=== PATIENT | female | born 1990 | race Hispanic/Latino ===

== ENCOUNTER 2017-12-30 17:22 | Observation (INO) | payer MEDICAID ==
[~2017-12-30] VITALS: Ht 170.2 cm; Wt 72.6 kg
[2018-01-07] MEDS ORDERED: LACTATED RINGERS 1000ML 1,000 ML IV PRN (09:00)
== END 2018-01-07 10:35 | disposition home or self-care (01) ==
LOC: LDH 01-07 07:59
PROVIDERS: ADMIT Obstetrics & Gynecology; ATTEND Obstetrics & Gynecology
DX: O26.893 Other specified pregnancy related conditions, third trimester (principal); R10.2 Pelvic and perineal pain; M54.9 Dorsalgia, unspecified; Z3A.38 38 weeks gestation of pregnancy
CPT/HCPCS: 36415; 85027; 86592; 86850; 86900; 86901; 87340 ×2; 96360; G0378 ×4; J7120

== ENCOUNTER 2018-01-08 10:30 | Inpatient (IN) | payer MEDICAID ==
[2018-01-07 11:24] LABS: HEMATOCRIT 35.5 % (36-48); MEAN CORPUSCULAR HEMOGLOBIN 31.6 pg (27.0-33.0); MEAN CORPUSCULAR HGB CONC 34.1 g/dL (32.0-36.0); MEAN CORPUSCULAR VOLUME 92.6 fL (79-99); NUCLEATED RED BLOOD CELLS 0.1 % (0.0-0.19); PLATELET COUNT (AUTO) 172 K/uL (130-400); RED BLOOD CELL COUNT(AUTO) 3.83 MIL/uL (4.00-5.50); RED CELL DISTRIBUTION WIDTH 16.9 % (11.0-15.5); WHITE BLOOD COUNT (AUTO) 10.6 K/uL (4.8-10.8)
[2018-01-08 07:30] LABS: HEPATITIS Bs ANTIGEN SCREEN P Negative (Negative)
[2018-01-09] MEDS ORDERED: LACTATED RINGERS 1000ML 1,000 ML IV SCH (08:15)
[2018-01-09] MEDS ORDERED: CALDOLOR 800MG+NS 250ML 250 ML IV PRN (08:15)
[2018-01-09] MEDS ORDERED: CEFAZOLIN SODIUM 1 GM VIAL IVP PRN (08:15)
[2018-01-09] MEDS ORDERED: DURAMORPH PF1 MG/ML 10ML AMP IV ONE (09:08)
[2018-01-09] MEDS ORDERED: MIDAZOLAM HCL 1 MG/ML 2ML VIAL ONE (09:14)
[2018-01-09] MEDS ORDERED: CEFAZOLIN SODIUM 1 GM VIAL IVP ONE (09:15)
[2018-01-09] MEDS ORDERED: OXYTOCIN 10 USP UNITS/ML ONE ×2 (09:35→10:44)
[2018-01-09] MEDS ORDERED: EPHEDRINE-NS PF 50MG/5ML SYRINGE IV ONE (09:35)
[2018-01-09] MEDS ORDERED: DEXAMETHASONE SOD PHOSPHATE 10MG/ML 1ML VIAL ONE (09:35)
[2018-01-09] MEDS ORDERED: ONDANSETRON HCL 4 MG/2 ML VIAL ONE ×2 (09:35→11:55)
[2018-01-09] MEDS ORDERED: OXYTOCIN-LR 20 UNITS/1000 ML 1,000 ML IV PRN (09:59)
[2018-01-09] MEDS ORDERED: IBUPROFEN 800 MG TAB PO SCH (10:00)
[2018-01-09] MEDS ORDERED: LANOLIN 30GM OINTMENT TP PRN (10:00)
[2018-01-09] MEDS ORDERED: HYDROCODONE/ACETAMINOPHEN 5/325 MG TAB PO PRN ×2 (10:00)
[2018-01-09] MEDS ORDERED: SODIUM CHLORIDE 0.9% 10 ML VIAL IVP PRN (10:00)
[2018-01-09] MEDS ORDERED: ACETAMINOPHEN-CODEINE 300/30MG TAB PO PRN (10:00)
[2018-01-09] MEDS ORDERED: DIPH,PERTUSS(ACELL),TET VAC/PF 0.5 ML VIAL IM SCH (10:00)
[2018-01-09] MEDS ORDERED: PROMETHAZINE HCL 25 MG/ML 1ML AMPULE IM PRN (10:00)
[2018-01-09] MEDS ORDERED: MEASLES/MUMPS/RUBELLA VACCINE, LIVE 0.5 ML/VIAL SQ SCH (10:00)
[2018-01-09] MEDS ORDERED: BISACODYL 10 MG SUPP.RECT RC PRN (10:00)
[2018-01-09] MEDS ORDERED: DIPHENHYDRAMINE HCL 25 MG CAPSULE PO PRN (10:00)
[2018-01-09] MEDS ORDERED: MEPERIDINE-PF 75 MG/ML SYG IM PRN (10:00)
[2018-01-09] MEDS ORDERED: METHYLERGONOVINE MALEATE 0.2 MG/1 ML ML ONE (10:37)
[2018-01-09] MEDS ORDERED: METHYLERGONOVINE MALEATE 0.2 MG/1 ML ML IM SCH (10:45)
[2018-01-09] MEDS ORDERED: MEPERIDINE-PF 50 MG/ML SYG ONE (11:48)
[2018-01-09 12:00] VITALS: BP 122/76
[2018-01-09 15:30] VITALS: BP 123/75
[2018-01-09] MEDS: CALDOLOR 800MG+NS 250ML 250 ML IV SCH (17:44)
[2018-01-09 19:45] VITALS: BP 99/61
[2018-01-09] MEDS: DOCUSATE SODIUM 100 MG CAP PO SCH (20:15)
[2018-01-09] MEDS: DEXTROSE 5 %-0.45 % NACL 1,000 ML IV PRN (21:03)
[2018-01-09] MEDS: SIMETHICONE 80 MG TAB.CHEW PO PRN (23:23)
[2018-01-09 23:24] VITALS: BP 119/78
[2018-01-10] MEDS: CALDOLOR 800MG+NS 250ML 250 ML IV SCH (02:01)
[2018-01-10 03:51] VITALS: BP 105/68
[2018-01-10] MEDS: DEXTROSE 5 %-0.45 % NACL 1,000 ML IV PRN (04:20)
[2018-01-10 07:41] VITALS: BP 104/67
[2018-01-10 08:56] LABS: HEMATOCRIT 31.9 % (36-48); MEAN CORPUSCULAR HEMOGLOBIN 31.6 pg (27.0-33.0); MEAN CORPUSCULAR HGB CONC 34.2 g/dL (32.0-36.0); MEAN CORPUSCULAR VOLUME 92.4 fL (79-99); PLATELET COUNT (AUTO) 160 K/uL (130-400); RED BLOOD CELL COUNT(AUTO) 3.45 MIL/uL (4.00-5.50); RED CELL DISTRIBUTION WIDTH 16.7 % (11.0-15.5); WHITE BLOOD COUNT (AUTO) 12.9 K/uL (4.8-10.8)
[2018-01-10] MEDS: DOCUSATE SODIUM 100 MG CAP PO SCH ×2 (09:05→21:27)
[2018-01-10] MEDS: SIMETHICONE 80 MG TAB.CHEW PO PRN ×3 (09:05→21:27)
[2018-01-10] MEDS: LIDOCAINE 5% TOPICAL PATCH TP SCH (09:06)
[2018-01-10] MEDS: IBUPROFEN 800 MG TAB PO SCH ×2 (09:09→17:22)
[2018-01-10 11:43] VITALS: BP 97/56
[2018-01-10 15:56] VITALS: BP 104/71
[2018-01-10 19:33] VITALS: BP 103/68
[2018-01-10 23:57] VITALS: BP 105/61
[2018-01-11] MEDS: IBUPROFEN 800 MG TAB PO SCH ×2 (02:12→08:30)
[2018-01-11 04:07] VITALS: BP 108/66
[2018-01-11 08:00] VITALS: BP 104/64
[2018-01-11] MEDS: LIDOCAINE 5% TOPICAL PATCH TP SCH (08:29)
[2018-01-11] MEDS: DOCUSATE SODIUM 100 MG CAP PO SCH (08:29)
[2018-01-11] MEDS: SIMETHICONE 80 MG TAB.CHEW PO PRN (08:29)
[2018-01-11] MEDS ORDERED: DOCU-116 PO ×2 (11:51)
[2018-01-11 11:55] VITALS: BP 112/70
[2018-01-11] MEDS ORDERED: MO8B PO ×2 (12:10)
[2018-01-11] MEDS ORDERED: ACET1TAB12 PO ×2 (12:12)
== END 2018-01-11 13:00 | disposition home or self-care (01) | DRG 540 ==
LOC: LDH 01-09 07:52 → WSH 01-09 11:43
PROVIDERS: ADMIT Obstetrics & Gynecology; ATTEND Obstetrics & Gynecology
PROC: 0UL70ZZ Occlusion of Bilateral Fallopian Tubes, Open Approach (ICD-10-PCS; 2018-01-09)
PROC: 3E0234Z Introduction of Serum, Toxoid and Vaccine into Muscle, Percutaneous Approach (ICD-10-PCS; 2018-01-09)
PROC: 10D00Z1 Extraction of Products of Conception, Low, Open Approach (ICD-10-PCS; principal; 2018-01-09 10:30)
DX: O34.211 Maternal care for low transverse scar from previous cesarean delivery (principal); D62 Acute posthemorrhagic anemia; O69.1XX0 Labor and delivery complicated by cord around neck, with compression, not applicable or unspecified; Z37.0 Single live birth; Z3A.38 38 weeks gestation of pregnancy; Z30.2 Encounter for sterilization; O90.81 Anemia of the puerperium; O99.284 Endocrine, nutritional and metabolic diseases complicating childbirth; E03.9 Hypothyroidism, unspecified; Z23 Encounter for immunization
CPT/HCPCS: 36415; 59510; 85027; 86592; 86850; 86900; 86901; 87340; 88302; 90715; 96360; A4344; A4606; G0378; J0690; J1100; J1741; J2175; J2210; J2250; J2274; J2405; J2550; J2590; J3490; J7120

== ENCOUNTER 2018-01-14 17:34 | Emergency (ER) | payer MEDICAID ==
[~2018-01-14 17:34] MED LIST: ACET1TAB12 PO; DOCU-116 PO; MO8B PO
[2018-01-14] MEDS ORDERED: SODIUM CHLORIDE 0.9% 1000ML 1,000 ML IV ONE (18:48)
[2018-01-14] MEDS ORDERED: PROCHLORPERAZINE EDISYLATE 10 MG/2 ML VIAL ONE (18:49)
[2018-01-14] MEDS ORDERED: BUTALB/ACETAMINOPHEN/CAFFEINE 1 EACH TABLET PO ONE (18:49)
== END 2018-01-14 23:05 | disposition home or self-care (01) ==
LOC: EDH 17:34
DX: G97.1 Other reaction to spinal and lumbar puncture (principal); E07.9 Disorder of thyroid, unspecified; Z98.890 Other specified postprocedural states; Z91.040 Latex allergy status
CPT/HCPCS: 96361; 96374; 99285; J0780; J7030

== ENCOUNTER → 2023-01-31 | Outpatient (CLI) | payer SELFPAY ==
[~2023-01-31] MED LIST changes: +IBUP-1493 PO; -MO8B PO
== END | disposition home or self-care (01) ==
LOC: RAH 14:12
PROVIDERS: ATTEND Obstetrics & Gynecology
DX: N63.15 Unspecified lump in the right breast, overlapping quadrants (principal); N63.10 Unspecified lump in the right breast, unspecified quadrant; N64.4 Mastodynia
CPT/HCPCS: 76641

== ENCOUNTER → 2023-02-17 | Outpatient (CLI) | payer SELFPAY ==
[~2023-02-17] MED LIST changes: +LIDOCAINE HCL MPF 1% 5ML VIAL ONE
[2023-02-17 08:31] LABS: INR 0.99 (0.85-1.15); PROTHROMBIN TIME 10.8 SEC (9.6-11.6)
== END | disposition home or self-care (01) ==
LOC: RAH 07:38
PROVIDERS: ATTEND Obstetrics & Gynecology
DX: N63.15 Unspecified lump in the right breast, overlapping quadrants (principal); D24.1 Benign neoplasm of right breast; Z79.01 Long term (current) use of anticoagulants
CPT/HCPCS: 19083; 85610; 85730; 36415; J3490; A4215 ×3